=== PATIENT | female | born 1940 | race African-American/Black ===

== ENCOUNTER 2017-03-21 04:00 | Emergency (ER) | payer MEDICARE ==
[~2017-03-21] VITALS: Ht 162.6 cm; Wt 76.7 kg
--- NOTE | 2017-03-21 04:10 | PHYS DOC ---
Past Medical History Past Medical History: No Pertinent History Past Surgical History: Tonsillectomy Alcohol Use: None Drug Use: None Adult General Chief Complaint Chief Complaint: NOSEBLEED HPI HPI Patient is a 76 year old female who presents with nosebleed for the past hour. State she has cold symptoms for the past few days and gets nosebleeds like this in the past. She notes blowing her nose a lot recently. She denies fatigue, lightheadedness, trauma, or nose picking. No blood thinner use. Review of Systems Review of Systems Constitutional: Denies fever or chills [] Eyes: Denies change in visual acuity, redness, or eye pain [] HENT: Denies sore throat [] Respiratory: Denies shortness of breath [] Cardiovascular: No additional information not addressed in HPI [] GI: Denies abdominal pain, nausea, vomiting, bloody stools or diarrhea [] : Denies dysuria or hematuria [] Musculoskeletal: Denies back pain or joint pain [] Integument: Denies rash or skin lesions [] Neurologic: Denies headache, focal weakness or sensory changes [] Endocrine: Denies polyuria or polydipsia [] Current Medications Current Medications Current Medications Medications (Trade) Dose Ordered Sig/Rosibel Start Time Stop Time Status Last Admin Dose Admin Cocaine HCl 4 ml 1X ONCE 03/21/17 04:45 03/21/17 04:46 DC 03/21/17 04:48 4 ML Oxymetazoline HCl (Afrin) 2 spray 1X ONCE 03/21/17 04:15 03/21/17 04:27 DC 03/21/17 04:15 2 SPRAY Allergies Allergies Allergies Coded Allergies Type Severity Reaction Last Updated Verified Sulfa (Sulfonamide Antibiotics) Allergy Unknown 03/21/17 Yes Physical Exam Physical Exam Constitutional: Well developed, well nourished, no acute distress, non-toxic appearance. [] HENT: Normocephalic, atraumatic, bilateral external ears normal, oropharynx moist, no oral exudates. Left anterior epistaxis active, dried right anterior epistaxis. [] Eyes: PERRLA, EOMI. [] Neck: Normal range of motion, supple. [] Cardiovascular:Heart rate regular rhythm [] Lungs & Thorax: Bilateral breath sounds clear to auscultation [] Abdomen: Bowel sounds normal, soft, no tenderness. [] Skin: Warm, dry, no erythema, no rash. [] Back: Normal ROM. [] Extremities: ROM intact, no edema. [] Neurologic: Alert and oriented X 3, normal motor function, normal sensory function, no focal deficits noted. [] Psychologic: Affect normal, judgement normal, mood normal. [] Current Patient Data Vital Signs Vital Signs Date Time Temp Pulse Resp B/P (MAP) Pulse Ox O2 Delivery O2 Flow Rate FiO2 03/21/17 04:17 95.0 101 16 95 Room Air 95.0 Course & Med Decision Making Course & Med Decision Making Pertinent Labs and Imaging studies reviewed. (See chart for details) Attempted direct pressure with afrin spray without success. She was packed on the left. Hemostasis was achieved. She was instructed to follow up with ENT clinic closely. She is placed on prophylactic antibiotics. Return precautions given. She and understand and agree with plan. Dragon Disclaimer Dragon Disclaimer This electronic medical record was generated, in whole or in part, using a voice recognition dictation system. Nose Bleed Procedure Nose Bleed Procedure Indication: Epistaxis Procedure: The patient was positioned appropriately and the nares were cleared as well as possible. Afrin and direct pressure were held with brief stop of bleed. After restarted, merocel anterior nasal packing was placed and cocaine 4 %, 2ml was applied. Hemostasis was obtained. The patient tolerated the procedure well. Complications: none. Departure Departure Impression: Primary Impression: Anterior epistaxis Disposition: 01 HOME, SELF-CARE Condition: STABLE Patient Instructions: Nosebleed, [id number] Additional Instructions: Take keflex to prevent infection. Follow up with ENT clinic within 2 days. Please call for appointment; Dr. Hsu [phone]. Make sure to tell them you are a [facility] resident. Return for any concerns. Scripts Cephalexin (KEFLEX) 250 Mg Capsule 1 CAP PO TID, #15 CAP Prov: Sergio STEEL MD 03/21/17 Sergio STEEL MD March 21, 2017 04:10
[2017-03-21] MEDS ORDERED: OXYMETAZOLINE 0.05% NASAL SPRAY 30ML BOTTLE. NS ONE (04:15)
[2017-03-21 04:17] VITALS: BP 168/78
[2017-03-21] MEDS ORDERED: COCAINE 4% TOPICAL SOLUTION TP ONE (04:45)
[2017-03-21] MEDS ORDERED: CEPH-263 PO (05:33)
== END 2017-03-21 05:40 | disposition home or self-care (01) ==
LOC: ER 04:00 → MERGE 04:00 → ER 05:40
DX: R04.0 Epistaxis (principal); Z88.2 Allergy status to sulfonamides
CPT/HCPCS: 30901; 99283-25; 99284-25

== ENCOUNTER 2017-11-19 23:17 | Emergency (ER) | payer MEDICARE ==
[2017-11-19] MEDS ORDERED: COCAINE 4% TOPICAL SOLUTION TP (23:33)
== END 2017-11-20 02:15 | disposition home or self-care (01) ==
LOC: ER 11-20 02:15
DX: R04.0 Epistaxis (principal); Z88.2 Allergy status to sulfonamides
CPT/HCPCS: 30901; 99284-25